=== PATIENT | male | born 1945 | race African-American/Black ===

== ENCOUNTER 2019-09-05 23:42 | Observation (INO) | payer MEDICARE, MEDICAID ==
[2019-09-06] MEDS ORDERED: Aspirin Chewable 81 MG TAB ONE (02:31)
[2019-09-06 02:53] LABS: Troponin I Less than 0.010 ng/mL (< 0.028)
[2019-09-06 04:08] VITALS: BMI 25.7
[2019-09-06] MEDS ORDERED: Ondansetron ODT 4 MG TAB SL PRN (04:09)
[2019-09-06] MEDS ORDERED: Sodium Chloride 0.9% 1,000 ML IV SCH (04:09)
[2019-09-06] MEDS ORDERED: Acetaminophen 325 MG TAB PO PRN (04:09)
[2019-09-06] MEDS ORDERED: Ondansetron PF 4 MG/2 ML Vial IVP PRN (04:09)
[2019-09-06] MEDS ORDERED: HYDROcodone/Acetaminophen 5/325 mg Tablet PO PRN ×2 (04:09)
[2019-09-06] MEDS ORDERED: Acetaminophen 500 MG TAB PO PRN (05:23)
[2019-09-06] MEDS ORDERED: Folic Acid 1 MG TAB PO SCH (09:00)
[2019-09-06] MEDS ORDERED: Apixaban 5 MG TAB PO SCH (09:00)
[2019-09-06] MEDS ORDERED: Losartan 25 MG TAB PO SCH (09:00)
[2019-09-06] MEDS ORDERED: Finasteride 5 MG TAB PO SCH (09:00)
--- NOTE | 2019-09-06 09:26 | CT ---
PRELIMINARY REPORT/[facility]/EMERGENCY AFTER HOURS PROCEDURE PROCEDURE INFORMATION: Exam: CT Angiography Chest With Contrast Exam date and time: 09/06/2019 2:52 AM Age: 74 years old Clinical history: Shortness of breath; Patient HX: [id number] transfer from [place] for admission for syncope/elevated troponin TECHNIQUE: Imaging protocol: Computed tomographic angiography of the chest with intravenous contrast. 3D rendering: MIP reconstructed images were created and reviewed. COMPARISON: No relevant prior studies available. FINDINGS: Pulmonary arteries: No pulmonary emboli. Aorta: No aortic aneurysm. No aortic dissection. Lungs: Dorsal lower lobe consolidations medial bilateral lower lobes consistent with atelectasis vs f ibrosis. Pleural space: No pneumothorax. No pleural effusion. Heart: There are atheromatous calcifications of the aorta and coronary vasculature. Lymph nodes: Unremarkable. No enlarged lymph nodes. Bones/joints: Chronic degenerative spinal changes without acute fracture or dislocation. Soft tissues: Unremarkable. Upper abdomen: 3 x 2 cm gallstone in the neck. Several splenules noted. IMPRESSION: No pulmonary emboli. Atheromatous calcifications of the aorta and coronary vasculature. Dorsal lower lobe consolidations medial bilateral lower lobes consistent with atelectasis vs fibrosis . 3 x 2 cm gallstone in the neck. Thank you for allowing us to participate in the care of your patient. Dictated and Authenticated by: Taiwo Leon MD 09/06/2019 3:16 AM Central Time ([place] & [place]) FINAL REPORT CT ANGIOGRAM CHEST: 09/06/2019 HISTORY: Shortness of breath. FINDINGS: I agree with the preliminary report. There is a prominent stone in the region of the gallbladder neck, only partially imaged on this exam. Splenules are noted within the left upper quadrant. There is a small cyst in the upper aspect of the left kidney. No significant pleural, pericardial or mediastinal fluid. There is no lymphadenopathy appreciated within the chest. No evidence for pulmonary arterial embolism is evident on this exam. There are peripheral focal areas of consolidation within the posterior aspect of the bilateral lower lobes, which may represent volume loss or less likely infectious pneumonitis. Incompletely assessed c oronary arterial calcification noted. IMPRESSION: No evidence for pulmonary embolism. Incidental findings as above. CODE QA POS: [facility]
[2019-09-06] MEDS ORDERED: Iopamidol-370 76% 500 ML 1 ML ONE (12:07)
[2019-09-06 12:40] VITALS: BP 129/66; TEMP 98.6
--- NOTE | 2019-09-06 14:34 | DIS ---
DATE OF ADMISSION: 09/06/2019 DATE OF DISCHARGE: 09/06/2019 DISCHARGE DISPOSITION: To home. PRIMARY DISCHARGE DIAGNOSES: 1. Syncope likely due to exhaustion and mild dehydration. 2. Acute kidney injury, resolved. SECONDARY DISCHARGE DIAGNOSES: 1. History of multiple myeloma in remission. 2. Hypertension. PROCEDURES DONE DURING HOSPITALIZATION: H and H 12 and 38, platelet count 119, MCV is 97 at 43% lymphocytes, 36% neutrophils, 8% bands, and 13% monocytes. BUN [address] angio of the chest done showed no pulmonary embolus, there is findings suggestive of possible atelectasis versus fibrosis in bilateral lower lobe areas. There is a 3.3 x 2 cm gallstone in the neck of the gallbladder. CT brain showed no acute intracranial abnormality. DISCHARGE MEDICATIONS: 1. Eliquis 5 mg p.o. twice daily. 2. Atorvastatin 40 mg p.o. nightly. 3. Vitamin D3 2000 units p.o. daily. 4. Pepcid 20 mg p.o. nightly. 5. Finasteride 5 mg p.o. daily. 6. Folic acid 1 mg daily. 7. Losartan 100 mg p.o. daily. 8. Flomax 0.4 mg two capsules p.o. nightly. 9. Omnicef 300 mg p.o. twice daily for another 6 days. ALLERGIES: NO KNOWN DRUG ALLERGIES. DISCHARGE PLAN: The patient to follow up with his primary care physician in [facility] in 1 week. He also needs to follow up with his oncologist in [place] for his multiple myeloma as before. BRIEF COURSE DURING HOSPITALIZATION: The patient initially was brought to [facility] after he passed out at his workplace in [facility]. The patient admitted to drinking too many coffees and was not drinking adequate fluid. He in fact did not have his lunch or breakfast yesterday. He apparently passed out for a few minutes less than two or three per patient. His friends called EMS and by the time EMS arrived, the patient was fully awake. His friend in fact held him, so that he did not fall on to the ground. He did lose consciousness. No tongue biting or trashing of his arms per bystanders per patient. He did not have any chest pain or palpitations prior to this episode or after. He has been ambulating in the room here. No complaints of fever. He has some cough. He has known history of multiple myeloma and has been in remission per patient. He follows up with his oncologist in [facility]. He has had a complete workup done and was placed on IV fluids. CT angio of the chest did not reveal any thrombus. He likely has some basal atelectasis. CT brain was negative for any infarct. The patient had sore throat and a strep throat test was performed, which was negative. He is tolerating oral solid diet and is wanting to go home. He was counseled to adequately hydrate himself. He in fact had a stress test done in January of 2019 in [facility] and he was told that he has valve issues, but no signs of ischemia. He is hemodynamically stable and will be shortly discharged home. Please note, I have seen and examined the patient on the day of discharge. Job ID: [id number] MTDD
[2019-09-06] MEDS ORDERED: Famotidine 20 MG TAB PO SCH (21:00)
[2019-09-06] MEDS ORDERED: Tamsulosin HCl 0.4 MG CAP PO SCH (21:00)
[2019-09-06] MEDS ORDERED: Atorvastatin Calcium 40 MG TAB PO SCH (21:00)
--- NOTE | 2019-09-07 07:52 | HP ---
PRESENTING COMPLAINT: Syncope. HISTORY OF PRESENT ILLNESS: Mr. Elena Chairez is a 74-year-old male with past medical history of hypertension, hyperlipidemia, multiple myeloma, currently in remission status post 6 years of chemo with subsequent stem cell transplant, who developed dizziness [place] [employer] today. The patient stated he was standing for about half an hour talking with his friend and he felt to be dizzy and he sat down and felt better, but had a witnessed syncope by his friend, who helped him and laid him on the ground. The patient came to almost immediately, he said. His dizziness subsequently improved. He was transported to the ED. His creatinine was noted elevated at 1.68 with a troponin of 0.035. The patient was transferred here for further workup. The patient states he had a recent stress test and was told that he has . He recently had his losartan dose increased since the last one month. His home blood pressure now ranged in the 110s to 140s. He states he has not been eating due to his increased activity at the [employer]. He denies any nausea, vomiting, diarrhea, or any other volume loss. 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 PAST SURGICAL HISTORY: Stem cell transplant. ALLERGIES: NO KNOWN DRUG ALLERGIES. HOME MEDICATIONS: Include; 1. Finasteride. 2. Cholecalciferol. 3. Losartan. 4. Famotidine. 5. Tamsulosin. 6. Eliquis as well as folic acid. FAMILY HISTORY: Significant for mother with pancreatic cancer. SOCIAL HISTORY: The patient is active, fully functional at baseline. No history of tobacco, alcohol, or illicit drug use. REVIEW OF SYSTEMS: All systems reviewed x14 were negative except as mentioned above. PHYSICAL EXAMINATION: VITAL SIGNS: Blood pressure of 138/73, pulse of 83, respiratory rate of 16, O2 saturation 97% on room air, and temp 98.4. GENERAL: Average-built elderly male, sitting in bed, calm, conversant, not in any distress. HEENT: Head is atraumatic, normocephalic. Pupils equal and reactive to light. NECK: No JVD. No carotid bruit. RESPIRATORY: Good air entry bilaterally. No crepitations. CARDIOVASCULAR: S1, S2. Rate and rhythm regular. GI: Abdomen is full, soft, nontender. EXTREMITIES: Trace pedal edema. Compression stockings in-situ. No calf tenderness. NEUROLOGIC: The patient is alert, oriented. Cranial nerves 2 through 12 grossly intact. No pronator drift. LABORATORY DATA: Labs obtained from [place] shows EKG of normal sinus rhythm at 76 beats per minute. No ST-segment changes. Creatinine of 1.68. BUN of 16, sodium 135, potassium 4, chloride 98, hemoglobin 12, WBC of 6. Repeat troponin less than 0.1. D-dimer was 0.62. IMPRESSION: 1. Syncope - likely due to volume depletion in the setting of recent antihypertensive medication increase. 2. Hypertension. 3. Multiple myeloma in remission. 4. Chronic anticoagulation, stable. PLAN: We will admit the patient to observation. We will continue serial set of cardiac enzymes. We will do gentle IV fluid. We will obtain orthostatic vitals. If repeat troponin is negative, option of possible discharge can be obtained, given recently negative ischemic changes on reported stress test. At present, tamsulosin with volume depletion, likely etiology of patient's syncope. Need to continue high p.o. intake advised. 1. DVT prophylaxis. The patient is on Eliquis. 2. Hypertension. Continue current regimen. 3. Advance directives. The patient expressed intention to be full code. Total time spent in review of record, discussion with patient and evaluation, greater than 60 minutes. Job ID: [id number]
== END 2019-09-06 18:45 | disposition home or self-care (01) ==
LOC: ERS 23:42 → 2SW 09-06 04:05
PROVIDERS: ADMIT Internal Medicine; ATTEND Internal Medicine
DX: R55 Syncope and collapse (principal); I10 Essential (primary) hypertension; E78.5 Hyperlipidemia, unspecified; C90.01 Multiple myeloma in remission; E86.0 Dehydration; N17.9 Acute kidney failure, unspecified; Z94.84 Stem cells transplant status; Z79.01 Long term (current) use of anticoagulants; Z79.899 Other long term (current) drug therapy
CPT/HCPCS: 71275; 82550; 84484 ×2; 85379; 87081; 87430; 96360; 96361; 99285; G0378 ×2; 36415; 36416; Q9967